=== PATIENT | female | born 1975 | race Caucasian/White ===

== ENCOUNTER 2020-01-05 21:52 | Emergency (ER) | payer OTHER ==
[~2020-01-05] VITALS: Ht 162.6 cm; Wt 70.3 kg
[~2020-01-05 21:52] MED LIST: CEPH500 PO; CRUTCH3 USE; HYDACE5 PO; IBUP800 PO
== END 2020-01-06 01:22 | disposition home or self-care (01) ==
LOC: ER 21:52
DX: S61.512A Laceration without foreign body of left wrist, initial encounter (principal); Z23 Encounter for immunization; W25.XXXA Contact with sharp glass, initial encounter
CPT/HCPCS: 12002; 90471; 90714; 99282-25

== ENCOUNTER 2021-11-25 16:38 | Inpatient (IN) | payer OTHER ==
[~2021-11-25] VITALS: Ht 162.6 cm; Wt 74.9 kg
[2021-11-25 17:15] LABS: BASOPHILS ABSOLUTE AUTO 0.03 K/mm3 (0.00-0.23); BASOPHILS PERCENT AUTO 0 % (0-2); EOSINOPHILS ABSOLUTE AUTO 0.01 K/mm3 (0.00-0.68); EOSINOPHILS PERCENT AUTO 0 % (0-6); Hematocrit 41.1 % (33.0-51.0); Hemoglobin 13.7 g/dL (11.5-16.0); IMMATURE GRAN ABSOLUTE AUTO 0.04 K/mm3 (0.00-0.10); IMMATURE GRAN PERCENT AUTO 0 % (0-1); LYMPHOCYTES ABSOLUTE AUTO 0.48 K/mm3 (0.84-5.20); LYMPHOCYTES PERCENT AUTO 3 % (21-46); MONOCYTES ABSOLUTE AUTO 0.55 K/mm3 (0.16-1.47); MONOCYTES PERCENT AUTO 4 % (4-13); Mean Corpuscular HGB 28.9 pg (26.0-34.0); Mean Corpuscular HGB Conc 33.3 g/dL (31.5-36.5); Mean Corpuscular Volume 87 fL (80-100); NEUTROPHILS ABSOLUTE AUTO 14.09 K/mm3 (1.96-9.15); NEUTROPHILS PERCENT AUTO 93 % (41-73); Platelet Count 220 K/mm3 (150-400); RDW Coefficient Variation 14.4 % (11.7-14.2); RDW Standard Deviation 45.7 fL (35.1-46.3); Red Blood Cell Count 4.74 M/mm3 (3.80-5.20)
[2021-11-25 17:37] LABS: Albumin, Blood 3.7 g/dL (3.4-5.0); Bilirubin, Total 0.4 mg/dL (0.1-1.0); Bun/Creatinine Ratio 23.1 (12.0-20.0); Calcium, Blood 9.2 mg/dL (8.5-10.1); Creatinine, Blood 0.65 mg/dL (0.40-1.00); Globulin, Blood 3.6 g/dL (2.2-4.0); Total Protein, Blood 7.3 g/dL (6.4-8.2)
[2021-11-25 21:45] LABS: Cholesterol 173 mg/dL (50-200); HDL Cholesterol 57 mg/dL (>39); LDL/HDL RATIO 1.9; Low Density Lipoprotein Chol 107 mg/dL (0-110); Triglycerides 46 mg/dL (30-160); Very Low Density Lipoprot Chol 9 mg/dL (6-32)
[2021-11-25 22:05] LABS: Source, Urine Clean Catch
[2021-11-25 22:09] LABS: Bilirubin, Urine Neg (Neg); Blood, Urine 5+ (Neg); Glucose Qualitative, Urine Neg (Neg); Ketones, Urine Neg (Neg); Leukocyte Esterase, Urine Neg (Neg); Nitrite, Urine Neg (Neg); Protein, Urine 1+ (Neg); Specific Gravity, Urine 1.005 (1.003-1.022); Urobilinogen, Urine NORM (Normal)
[2021-11-25 22:25] LABS: U Amphetamine Screen DETECTED; U Barbituate Screen Not Detected; U Benzodiazapine Screen Not Detected; U Buprenorphine Screen Not Detected; U Cannabinoids Screen Not Detected; U Cocaine Screen Not Detected; U Methadone Screen Not Detected; U Methamphetamine Screen DETECTED; U Opiates Screen Not Detected; U Oxycodone Screen Not Detected; U Phencyclidine Screen Not Detected; U Propoxyphene Screen Not Detected
[2021-11-25 22:34] LABS: Appearance, Urine Hazy (Clear); Color, Urine Pale Yellow (P-Yellow)
[2021-11-25 22:35] LABS: Amorphous Mod (0-Heavy); Bacteria Few /hpf; Red Blood Cells, Urine 0-2 /hpf (0-2); Squamous Epithelial Cells Many /hpf (Few); White Blood Cells, Urine Rare /hpf (0-5)
--- NOTE | 2021-11-26 04:42 | NUR ---
2235 PT ARRIVED ON THE FLOOR VIA WHEELCHAIR. PT ABLE TO AMBULATE TO BED INDEPENDENTLY. RIGHT ARM IS WEAKER THAN LEFT WITH OBVIOUS DROOP IN FACE. PT DENIES VISION CHANGES BUT STATES SHE RECOGNIZES THE SLUR IN HER VOICE.
[2021-11-26 05:04] LABS: BASOPHILS ABSOLUTE AUTO 0.05 K/mm3 (0.00-0.23); BASOPHILS PERCENT AUTO 1 % (0-2); EOSINOPHILS ABSOLUTE AUTO 0.13 K/mm3 (0.00-0.68); EOSINOPHILS PERCENT AUTO 1 % (0-6); Hematocrit 40.3 % (33.0-51.0); Hemoglobin 13.3 g/dL (11.5-16.0); IMMATURE GRAN ABSOLUTE AUTO 0.02 K/mm3 (0.00-0.10); IMMATURE GRAN PERCENT AUTO 0 % (0-1); LYMPHOCYTES ABSOLUTE AUTO 1.98 K/mm3 (0.84-5.20); LYMPHOCYTES PERCENT AUTO 21 % (21-46); MONOCYTES ABSOLUTE AUTO 0.67 K/mm3 (0.16-1.47); MONOCYTES PERCENT AUTO 7 % (4-13); Mean Corpuscular Volume 88 fL (80-100); Mean Platelet Volume 11.1 fL (9.1-12.4); NEUTROPHILS PERCENT AUTO 70 % (41-73); Platelet Count 207 K/mm3 (150-400); RDW Coefficient Variation 14.7 % (11.7-14.2); RDW Standard Deviation 47.1 fL (35.1-46.3); Red Blood Cell Count 4.59 M/mm3 (3.80-5.20); White Blood Cell Count 9.55 K/mm3 (4.00-11.30)
[2021-11-26 05:24] LABS: Bun/Creatinine Ratio 13.6 (12.0-20.0); Calcium, Blood 8.7 mg/dL (8.5-10.1); Creatinine, Blood 0.73 mg/dL (0.40-1.00); Potassium, Blood 3.8 mmol/L (3.5-5.5)
[2021-11-26 14:55] LABS: C-REACTIVE PROTEIN, EXT RANGE 4.81 mg/dL (0.000-0.300); Thyroid Stimulating Hormone 1.32 uIU/mL (0.360-4.800)
--- NOTE | 2021-11-26 17:14 | NUR ---
SHIFT SUMMARY- PT A/O X4, INDEP UP TO BATHROOM. PT CONTINUES WITH RIGHT SIDE ARM WEAKNESS AND RIGHT FACIAL DROOP, SLURRED SPEECH NOTED. NO SWALLOWING DIFFICULTY NOTED. LS CLEAR, ON RA. TELE NSR AT 72. PT DENIES ANY PAIN OR OTHER COMPLAINTS. MRI AND ECHO COMPLETED TODAY. NO OTHER ACUTE CHANGES THIS SHIFT.
--- NOTE | 2021-11-27 04:12 | NUR ---
PT INDEPENDENT IN ROOM. STRENGTH IN RIGHT ARM IMPROVING ALONG WITH SPEECH AND FACE. NO ACUTE CHANGES THROUGH THE NIGHT. VSS.
[2021-11-27 05:09] LABS: Hematocrit 40.1 % (33.0-51.0); Mean Corpuscular HGB 28.9 pg (26.0-34.0); Mean Corpuscular HGB Conc 32.4 g/dL (31.5-36.5); Mean Corpuscular Volume 89 fL (80-100); Mean Platelet Volume 10.9 fL (9.1-12.4); Platelet Count 222 K/mm3 (150-400); RDW Coefficient Variation 14.6 % (11.7-14.2); RDW Standard Deviation 47.2 fL (35.1-46.3); White Blood Cell Count 6.72 K/mm3 (4.00-11.30)
[2021-11-27 05:34] LABS: Albumin, Blood 3.1 g/dL (3.4-5.0); Bilirubin, Total 0.1 mg/dL (0.1-1.0); Bun/Creatinine Ratio 18.1 (12.0-20.0); Calcium, Blood 8.4 mg/dL (8.5-10.1); Creatinine, Blood 0.83 mg/dL (0.40-1.00); Globulin, Blood 3.1 g/dL (2.2-4.0); Potassium, Blood 3.9 mmol/L (3.5-5.5); Total Protein, Blood 6.2 g/dL (6.4-8.2)
[2021-11-27] MEDS ORDERED: ASPI81CH PO (15:10)
[2021-11-27] MEDS ORDERED: ATOR10 PO (15:10)
[2021-11-27] MEDS ORDERED: CLOP75 PO (15:11)
--- NOTE | 2021-11-27 16:16 | NUR ---
DISCHARGE SUMMARY PATIENT IS ALERT AND ORIENTED X4. PATIENT IS IND IN ROOM. PATIENT HAD NO ACUTE EVENTS THIS SHIFT. VITAL SIGNS REVIEWED. PATIENT WAS READ DISCHARGE INSTRUCTIONS, PATIENT UNDERSTOOD DISCHARGE INSTRUCTIONS. PATIENT WAS WHEELED OUT BY BOYFRIEND OF PATIENT. IVS REMOVED WNL.
[2021-11-28 12:08] LABS: HIV AB/P24 AG SCREEN Non Reactive (Non Reactive)
== END 2021-11-27 16:10 | disposition home or self-care (01) | DRG 65 ==
LOC: ER 16:38 → MEDS 21:12
PROVIDERS: Family Medicine; Internal Medicine; Physician Assistant; ADMIT Internal Medicine
DX: I63.89 Other cerebral infarction (principal); R65.10 Systemic inflammatory response syndrome (SIRS) of non-infectious origin without acute organ dysfunction; F17.210 Nicotine dependence, cigarettes, uncomplicated; I65.22 Occlusion and stenosis of left carotid artery; F15.10 Other stimulant abuse, uncomplicated; R29.810 Facial weakness; B19.20 Unspecified viral hepatitis C without hepatic coma; R29.704 NIHSS score 4; D72.829 Elevated white blood cell count, unspecified; Z71.6 Tobacco abuse counseling; Z71.51 Drug abuse counseling and surveillance of drug abuser
CPT/HCPCS: 36415; 70450; 70496; 70498; 70549; 70551; 80048; 80053; 80061; 81001; 83036; 84443; 85025; 85027; 85651; 86140; 87040; 87389; 92610; 93005; 93010; 93306; 97110; 97162; 97166; 97530; 99285-25; A9270; A9579; C9113; J1650; Q9967